=== PATIENT | male | born 1960 | race Caucasian/White ===

== ENCOUNTER 2019-06-29 08:25 | Outpatient (CLI) | payer BC, SELFPAY ==
--- NOTE | 2019-06-29 08:29 | ECG_ITS ---
Measurements Intervals [place] Rate: 61 P: -11 VT: 144 QRS: -30 QRSD: 94 T: 9 QT: 397 QTc: 402 Interpretive Statements SINUS RHYTHM VOLTAGE CRITERIA FOR LVH BORDERLINE R WAVE PROGRESSION, ANTERIOR LEADS BORDERLINE T WAVE ABNORMALITY- INFERIOR LEADS BASELINE ARTIFACT- I, II, AVR BORDERLINE ECG Electronically Signed On 06-29-2019 10:04:18 TIRE FABRICATOR by Bruce Dominguez D.O.
== END 2019-06-29 08:26 | disposition home or self-care (01) ==
LOC: ANHSURGERY 08:29
PROVIDERS: PCP Family Medicine; Visit Provider Surgery
DX: K42.0 Umbilical hernia with obstruction, without gangrene (principal); I10 Essential (primary) hypertension; R94.31 Abnormal electrocardiogram [ECG] [EKG]
CPT/HCPCS: 36415; 86850; 86900; 86901; 93005

== ENCOUNTER 2019-07-04 01:07 | Day surgery (SDC) | payer BC, SELFPAY ==
[2019-06-16 14:45] VITALS: BMI 38.9
--- NOTE | 2019-07-03 16:51 | P.PNAN_ITS ---
Anes - Eval Pre Procedure Procedure: Operation Date: 07/04/19 09:00 Proposed Procedures p Laparoscopic Incarcerated Umbilical Hernia Repair With Mesh, Davinci Assisted - Kaden Moulton DO Date/Time: 07/03/19 16:51 Surgeon: Kory Moulton DO Pre Op Diagnosis: Incarcerated Umbilical Hernia Patient Data Age: 59 Gender: M Height: 6 ft 3 in Weight: 141.52 kg Allergies Allergy/AdvReac Type Severity Reaction Status Date / Time erythromycin base Allergy Unknown Nausea Verified 06/16/19 14:21 TOBRAMYCIN (Generic Allergy) Allergy Unknown Swelling Uncoded 06/16/19 14:21 TOBREX OPTH Allergy Unknown Swelling Uncoded 06/16/19 14:21 of the Eye Home Medications Medication Instructions Recorded Confirmed Type lisinopril 10 mg tablet 10 mg PO DAILY #90 tablet 06/27/19 Rx tadalafil 5 mg tablet 5 mg PO DAILY #90 tablet 06/27/19 Rx ECG: Patient: Paul Mendoza FMR#: [id number] : [id number]:[id number] Age/Sex: 59 / MADM Date: 06/29/19 Loc: [facility]HS[facility] Attending Dr: Kaden Moulton DO Ordering Physician: Jose Alejandro Chase II, MD Date of Service: 06/29/19 Procedure(s): CA 12 lead EKG Accession Number(s): [id number] cc: ~ Measurements Intervals [place] Rate: 61 P: -11 ME: 144 QRS: -30 QRSD: 94 T: 9 QT: 397 QTc: 402 Interpretive Statements SINUS RHYTHM VOLTAGE CRITERIA FOR LVH BORDERLINE R WAVE PROGRESSION, ANTERIOR LEADS BORDERLINE T WAVE ABNORMALITY- INFERIOR LEADS BASELINE ARTIFACT- I, II, AVR BORDERLINE ECG Electronically Signed On 06-29-2019 10:04:18 PORTFOLIO ASSISTANT by Bruce Dominguez D.O. 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
[2019-07-04] VITALS (8 sets, daily range): BP systolic 139–166; BP diastolic 69–90; PULSE 56–84; RESP 16–26; TEMP 36.1–36.4; O2SAT 92–99
[2019-07-04] MEDS: IBUPROFEN IV 800 MG/200 ML 800 MG/200 ML BAG 400 MG IVPB (07:50)
[2019-07-04] MEDS: LACTATED RINGERS 1,000 ML 30 ML IV CONT ×2 (07:50→11:36)
--- NOTE | 2019-07-04 08:33 | P.PNAN_ITS ---
Anes - Eval Final PreProcedure Day of Procedure 07/04/19 08:33 Patient weight: obese Heart: regular rate and rhythm Lungs: clear to auscultation Airway: Mallampati scale class II Neurological: alert and oriented Last oral intake: >/= 8 hours ASA classification: III Emergent: no Anesthetic plan: proceed Anesthesia type and monitoring: general ETT and standard monitoring Informed Consent: The patient's anesthetic plan and its attendant risks and be nefits were discussed with the patient/family/POA. Questions were solicited and answers provided to the satisfaction of the patient/family/POA.
--- NOTE | 2019-07-04 09:00 | PM.IMHP ---
H&P: HPI History of Present Illness Chief complaint: Incarcerated Umbilical Hernia Narrative: Paul Mendoza is a 59 year old male who presents for elective umbilical hernia repair. No changes since last seen in office. Review of Systems Review of Systems: All systems reviewed & are unremarkable except as noted in HPI and below Eyes: Eyes: Denies change in vision ENT: Denies hearing loss, Denies neck pain and Denies sore throat Cardiovascular: Cardiovascular: Denies chest pain and Denies dyspnea Respiratory: Respiratory: Denies cough, Denies dyspnea and Denies wheezing Genitourinary: Genitourinary: Denies hematuria and Denies dysuria Musculoskeletal: Musculoskeletal: Denies arthralgias, Denies joint swelling and Denies neck pain Allergic/Immunologic: Allergic/Immunologic: Denies wheezing PMFSH Past Medical History Medical History Hypertension Wrist laceration Surgical History Surgical History Hx of cholecystectomy Family History Family History Mother Hypertension Father Family history of dementia Sibling Breast cancer Social History Social History Smoking packs per day: 1.5 Smoking cigarettes per day: 30.0 Years smoked: 13 Smoking pack-years: 19.50 Smoking status: Current every day smoker Tobacco type: cigarettes Alcohol intake: current 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 Home Medications and Allergies Home Medications Medication Instructions Recorded Confirmed Type lisinopril 10 mg tablet 10 mg PO DAILY #90 tablet 06/27/19 07/04/19 Rx tadalafil 5 mg tablet 5 mg PO DAILY #90 tablet 06/27/19 07/04/19 Rx Allergies Allergy/AdvReac Type Severity Reaction Status Date / Time erythromycin base AdvReac Mild Nausea Verified 07/04/19 07:44 tobramycin [From Tobrex] AdvReac Mild Swelling Verified 07/04/19 09:02 of the Eye TOBRAMYCIN (Generic Allergy) Allergy Mild SWELLING Uncoded 07/04/19 07:44 OF EYE TOBREX OPTH Allergy Mild Swelling Uncoded 07/04/19 07:44 of the Eye Vital Signs Vital Signs - 24 hr 07/04/19 07:25 Temperature 36.4 C L Pulse Rate 67 Respiratory Rate 20 Blood Pressure 146/80 H Pulse Oximetry 96 Exam Const: General: alert; No acute distress Orientation/consciousness: patient oriented x3 Limitations: no limitations HENMT: Head: normocephalic and atraumatic Ears: hearing grossly normal bilaterally General nose exam: Normal external nose present and Normal nares present Mouth: Yes Normal oral and palatal mucosa present and Yes moist mucous membranes Eyes: General: appearance normal, both eyes and all related structures Conjunctivae: conjunctivae normal Sclera: sclerae normal Pupils: Equal, round and reactive pupils present EOM: EOMs intact bilaterally Neck: Neck: normal visual inspection, full ROM, no lymphadenopathy, supple and no JVD Lymphatic: no lymphadenopathy noted Chest: Chest palpation & inspection: normal inspection of the chest Resp: Effort & Inspection: normal respiratory effort and able to speak in complete sentences Auscultation: clear to auscultation bilaterally Percussion: percussion normal Cardio: Jugular venous distension: no JVD Rate: regular rate Rhythm: regular rhythm Heart sounds: S1 normal heart sound present and S2 normal heart sound present Peripheral pulses: Peripheral pulses 2+ throughout GI: Inspection: normal to inspection and visible herniation (incarcerated umbilical) GI Palp: No abdominal tenderness, Yes Soft to palpation, No Guarding due to palpation present (GI), No Hernia present and No Rebound tenderness present Percussion: Yes normal to percussion Auscultation: normal bowel sounds : General: Yes no CVA tenderness Back/Spine/Pelvis: Kiran
[2019-07-04] MEDS: ceFAZolin 3 GM/D5W 100 ML 100 ML IVPB (09:05)
--- NOTE | 2019-07-04 11:19 | PM.PROC ---
Procedure Note - Detailed Date of procedure: 07/04/19 Pre-op diagnosis: Incarcerated Umbilical Hernia Post-op diagnosis: same Procedure performed: Laparoscopic incarcerated umbilical hernia repair with ProGrip mesh, da Otto assisted Description of procedure: Procedure as well as risks, benefits, and alternatives were discussed with the patient. Written consent was obtained and placed in chart prior to procedure. Patient was brought back to surgical suite. He was placed supine on operating table. Time-out was done to confirm patient and procedure. He was then intubated by the anesthesia department. A bump was placed under his left hip, and the bed was flexed slightly to extend the space between his costal margin and iliac crest. His abdomen was prepped and draped in sterile fashion using chlorhexidine prep. A 5 millimeter incision was made in the left upper quadrant, and a 5 millimeter Optiview trocar was advanced through the abdominal layers under direct visualization. Once inside the abdominal cavity, carbon dioxide insufflation was used to create a pneumoperitoneum. The abdomen was inspected. An 8 millimeter incision was made in the left lower quadrant, and an 8 millimeter robotic trocar was placed under direct visualization. Another 8 millimeter incision was made in the left lateral abdomen, and an 8 millimeter robotic trocar was placed under direct visualization. Exparel was infiltrated along the lateral abdominal beard to perform a transversus abdominis plane block bilaterally. The 5 millimeter port was removed, the incision was extended to 12 millimeters, and a 12 millimeter air seal port was placed under direct visualization. A Len-Frost cone was also used to place an 0-Vicryl simple interrupted suture at this trocar site. The robotic arms were brought up to the patient's bedside and secured to the ports. The camera and instruments were inserted, and I then moved over to the robotic console and took control of the camera and instruments. After careful thorough inspection of the abdominal cavity, I began my dissection at the hernia. The incarcerated omentum was carefully reduced using blunt dissection and hook electrocautery. A preperitoneal plane was then carefully dissected from the left lateral side medially using hook electrocautery. The hernia sac was reduced and a wide enough preperitoneal pocket was created for our repair and mesh placement. I then measured the hernia size. The hernia measured 2 cm x 2 cm. The fascia was closed using an 0-Stratafix running suture in a vertical fashion. A 10 cm x 15 cm pro laborer pullet farm mesh was then placed within the preperitoneal pocket. This was oriented vertically with the mesh centered on the hernia defect. The mesh was then secured at all 4 corners using 2 0 Vicryl simple interrupted suture. The peritoneum was then closed over the mesh using 2 0 V lock running absorbable suture. There was 1 small tear in the peritoneum at the hernia sac, and this was repaired using a 3 0 Vicryl [id number] suture. The repair was inspected, and one final inspection was made around the abdominal cavity. The robotic instruments were then removed, and the robotic arms were disengaged from the trocars. The ports were then removed under direct visualization, the camera was removed, and the pneumoperitoneum was released. The 0 Vicryl transfascial suture was tied down. The skin of the incisions was then approximated using 4-0 Monocryl subcuticular suture. Exofin glue was then applied on top. The patient was then awakened from anesthesia, extubated, and transferred to recovery. Implants: 10 cm x 15 cm Pro Hadoop Infrastructure Architect mesh Anesthesia: GETA and local (Exparel) Surgeon: Kaden Moulton DO Estimated blood loss (mL): 10 Drains: No Complications: No immediate complications Condition: stable Disposition: same day Findings: This is a 59-year-old man who presented with an umbilical hernia that had been present for several years
== END 2019-07-04 13:42 | disposition home or self-care (01) ==
PROVIDERS: PCP Family Medicine; Visit Provider Surgery
PROC: (CPT 49653; principal; 2019-07-04 09:00)
DX: K42.0 Umbilical hernia with obstruction, without gangrene (principal); I10 Essential (primary) hypertension; E66.9 Obesity, unspecified; Z68.39 Body mass index [BMI] 39.0-39.9, adult; F17.210 Nicotine dependence, cigarettes, uncomplicated
CPT/HCPCS: 49653; S2900; A9270; C1781; C9290; J0330; J0690; J1100; J1741; J2250; J2405; J2704; J2710; J3010; J7030; J7120

== ENCOUNTER 2020-08-23 17:55 | Emergency (ER) | payer OTHER, SELFPAY ==
[2020-08-23 18:11] VITALS: BP 141/117; PULSE 97; RESP 18; TEMP 36.4; O2SAT 98
--- NOTE | 2020-08-23 18:35 | ED.GENADULT ---
HPI - General Adult General Chief complaint: Skin/Abscess/Foreign Body Stated complaint: Rash Bilateral Legs Time Seen by Provider: 08/23/20 18:21 Source: patient Mode of arrival: ambulatory Limitations: no limitations History of Present Illness HPI narrative: Patient is a 60-year-old male who presents to emergency department for evaluation of rash that developed over the extremities and now has extended up into his lower abdomen patient notes burning red rash that is spread throughout the legs is noted patient denies similar occurrence allergic contacts or exposures patient has not taken anything for his symptoms and notes just burning patient saw his primary care doctor yesterday but the rash was not present Related Data Allergies Allergy/AdvReac Type Severity Reaction Status Date / Time erythromycin base AdvReac Mild Nausea Verified 08/21/20 14:40 tobramycin [From Tobrex] AdvReac Mild Swelling Verified 08/21/20 14:40 of the Eye Review of Systems Review of Systems: All systems reviewed & are unremarkable except as noted in HPI and below PMFSH Past Medical History Medical History (Updated 08/23/20 @ 20:07 by Richard Lawrence PA-C) Hypertension Tobacco abuse Wrist laceration Surgical History Surgical History History of umbilical hernia laparoscopic incarcerated umbilical hernia repair with Progrip mesh, daVbrady 07/04/2019 Hx of cholecystectomy Family History Family History Mother Hypertension Father Family history of dementia Sibling Breast cancer Social History Social History Smoking packs per day: 1.5 Smoking cigarettes per day: 30.0 Years smoked: 13 Smoking pack-years: 19.50 Tobacco type: cigarettes Alcohol intake: current 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 HEAD: Normocephalic, atraumatic. EYES: PERRLA and EOMI. ENT: Nares clear, no rhinorrhea or epistaxis. Mucous membranes moist. Oropharynx without tonsillar hypertrophy exudate or other lesions. NECK: Supple. No adenopathy or masses. CHEST: Clear to auscultation. No respiratory distress. No wheezes rales or rhonchi HEART: Regular rate and rhythm. No murmur heard. Normal peripheral pulses. EXTREMITIES: Normal range of motion. No edema. SKIN: Warm, dry, petechial rash over the lower extremities and lower torso, no blistering NEURO: No focal deficits. Alert and oriented x3. Cranial nerves II through XII grossly intact PSYCH: Normal mood and affect. Course Course Emergency Course: Patient was evaluated in the emergency department for petechial rash that began today was given fluids and steroids patient resting comfortably afebrile nontoxic-appearing no distress unsure as to the etiology of his petechiae patient will follow up with primary care tomorrow patient is aware of discussion with primary care patient will be sent home with instructions to return if symptoms worsen patient feels comfortable with this plan Consultations Consultation #1: Discussed case with Dr. Portillo who will follow the patient tomorrow by phone discussed case in entirety Date: 08/23/20 Time: 20:11 Vital Signs Vital signs: Vital Signs Temperature 97.5 F L 08/23/20 18:11 Pulse Rate 97 08/23/20 18:11 Respiratory Rate 18 08/23/20 18:11 Blood Pressure 141/117 H 08/23/20 18:11 Pulse Oximetry 98 08/23/20 18:11 Temperature 97.5 F L 08/23/20 18:11 Pulse Rate 97 08/23/20 18:11 Respiratory Rate 18 08/23/20 18:11 Blood Pressure 141/117 H 08/23/20 18:11 Pulse Oximetry 98 08/23/20 18:11 Medical Decision Making MDM Narrative Medical decision making narrative: Patient in the room no distress aware of case findings treatment plan and diagnosis a
[2020-08-23] MEDS: SODIUM CHLORIDE 0.9% IV 1,000 ML 999 ML IV CONT (18:44)
[2020-08-23] MEDS: FAMOTIDINE 20 MG/2 ML VIAL IV PUSH (18:45)
[2020-08-23] MEDS: DEXAMETHASONE SOD PHOS INJ 4 MG/ML VIAL 10 MG IV PUSH (18:47)
[2020-08-23] MEDS: diphenhydrAMINE HCl INJ 50 MG/ML VIAL 25 MG IV PUSH (18:50)
[2020-08-23 18:59] LABS: Basophils Percent Auto 0.4 % (0.2-1.2); Eosinophils Absolute Auto 0.2 K/mm3 (0-0.3); Immature Granulocyte Absolute 0.03 K/mm3 (0.00-0.031); Immature Granulocyte Percent A 0.4 % (0-0.5); Lymphocytes Absolute Auto 1.36 K/mm3 (0.9-3.2); Lymphocytes Percent Auto 18.4 % (18.3-44.2); Mean Corpuscular Hemoglobin 32.1 pg (26-34); Mean Corpuscular Volume 94.5 fl (80-100); Mean Platelet Volume 8.7 fl (7.4-10.4); Monocytes Absolute Auto 0.6 K/mm3 (0.1-0.6); Monocytes Percent Auto 7.8 % (2.6-8.5); Neutrophils Absolute Auto 5.3 K/mm3 (1.3-6.7); Platelet Count Result 149 k/mm3 (150-375); Red Blood Count 5.29 M/mm3 (4.6-6.20); Red Cell Distribution Width 13.2 % (11.5-14.5); White Blood Count 7.4 K/mm3 (4.5-10.0)
[2020-08-23 19:15] LABS: Alanine Aminotransferase 14 U/L (4-50); Albumin Level 4.3 g/dL (3.5-5.1); Alkaline Phosphatase 90 U/L (38-126); Anion Gap 5 mmol/L (8-16); Aspartate Amino Transferase 24 U/L (17-59); Bilirubin,Total 0.6 mg/dL (0.2-1.3); Blood Urea Nitrogen 21 mg/dL (9-20); CRP 0.7 mg/dL (<1.0); Calcium 9.5 mg/dL (8.4-10.2); Carbon Dioxide 26 mmol/L (22-30); Chloride 108 mmol/L (98-107); Estimated CRCL calculation 82 ml/min; Estimated Glomerular Filt Rate > 60; Glucose 107 mg/dL (75-110); INR 0.9; Potassium 4.2 mmol/L (3.4-5.0); Prothrombin Time 12.5 Seconds (11.1-14.7); Sodium 139 mmol/L (137-145)
[2020-08-23 19:23] LABS: Erythrocyte Sedimentation Rate 6 mm/hr (0-20)
[2020-08-23 20:41] VITALS: BP 132/98; PULSE 90; RESP 18; O2SAT 98
== END 2020-08-23 20:42 | disposition home or self-care (01) ==
PROVIDERS: Emergency Medicine Emergency Medical Services; Emergency Provider Emergency Medicine; PCP Family Medicine
DX: R23.3 Spontaneous ecchymoses (principal); I10 Essential (primary) hypertension; F17.210 Nicotine dependence, cigarettes, uncomplicated
CPT/HCPCS: 36415; 80053; 85025; 85610; 85652; 85730; 86140; 96361; 96374; 96375; 99284; J1100; J1200; J7030

== ENCOUNTER 2021-06-10 12:30 | Outpatient (CLI) | payer OTHER, SELFPAY ==
--- NOTE | 2021-06-10 13:00 | ECHO_ITS ---
Patient Info Name: Paul Mendoza Age: 61 years : 1960 Gender: Male Ht: 74 in Wt: 310 lbs BSA: 2.76 m2 HR: 86 bpm BP: 141 / 84 mmHg Technical Quality: Fair Exam Date: 06/10/2021 12:51 PM Exam Location: [facility] Patient Status: Outpatient Admit Date: 06/10/2021 Staff Ordering Physician: Girma Lyons PA-C Casino Floor Supervisor: Cookie Leiva RDCS Attending Provider: Girma Lyons PA-C Referring Physician: Raghav ALEJO Exam Type: CA echo doppler color flow Study Info Indications R01.1 - Cardiac murmur, unspecified Complete two-dimensional, color flow and Doppler transthoracic echocardiogram is performed. Summary 1. Complete two-dimensional, color flow and Doppler transthoracic echocardiogram is performed. 2. Left ventricular chamber dimension is normal. 3. Left ventricular systolic function is normal, estimated at 60-65%. 4. The left ventricular diastolic function is grade I diastolic dysfunction. 5. E/e' 7 is not elevated. 6. Global longitudinal strain is abnormal at -15.6%. 7. There is moderate aortic valve sclerosis. 8. There is mild to moderate aortic valve stenosis with a peak velocity of 284 cm/s, mean gradient of 19 mmHg, and aortic valve area of 1.5 cm2. 9. There is trace aortic valve regurgitation. 10. No pulmonary hypertension, estimated pulmonary arterial systolic pressure is 13 mmHg. 11. There is trivial pericardial effusion. Left Ventricle E/e' 7 is not elevated. Global longitudinal strain is abnormal at -15.6%. Left ventricular chamber dimension is normal. Left ventricular systolic function is normal, estimated at 60-65%. The left ventricular diastolic function is grade I diastolic dysfunction. Right Ventricle Right ventricular systolic function is normal and with normal TAPSE 3.5 cm. Right ventricular chamber dimension is normal. Left Atria Left atrial chamber dimension is normal. Right Atria Right atrial chamber dimension is normal. Aortic Valve The aortic valve is trileaflet. There is moderate aortic valve sclerosis. There is mild to moderate aortic valve stenosis with a peak velocity of 284 cm/s, mean gradient of 19 mmHg, and aortic valve area of 1.5 cm2. There is trace aortic valve regurgitation. Pulmonic Valve There is no pulmonic regurgitation. Mitral Valve There is no mitral valve stenosis. There is no mitral valve regurgitation. Tricuspid Valve There is no tricuspid valve regurgitation. No pulmonary hypertension, estimated pulmonary arterial systolic pressure is 13 mmHg. Pericardium/Pleural There is trivial pericardial effusion. Inferior Vena Cava Normal inferior vena cava with >50% collapse upon inspiration consistent with normal right atrial pressure, 5 mmHg. Aorta The aortic root size at the sinus of Valsalva is normal. Left Ventricular Outflow Tract Name Value Normal LVOT 2D LVOT Diameter 2.0 cm LVOT Doppler LVOT Peak Gradient 5 mmHg LVOT Mean Gradient 3 mmHg LVOT VTI 30 cm LVOT VTI/AV VTI Ratio 0.5
== END 2021-06-10 12:31 | disposition home or self-care (01) ==
PROVIDERS: PCP Family Medicine; Visit Provider Physician Assistant Medical
DX: R01.1 Cardiac murmur, unspecified (principal)
CPT/HCPCS: 93306

== ENCOUNTER → 2023-01-12 10:21 | Outpatient (CLI) | payer OTHER, SELFPAY ==
--- NOTE | ~2023-01-12 | XR_ITS ---
XR chest 2V 01/12/2023 10:33 Indication: Acute upper respiratory infection. Cough. Congestion. Procedure: 2 view chest Comparison: No prior studies for comparison. Findings: Heart size is normal. No focal air space disease, pulmonary edema, pleural effusion or susp ected pneumothorax. Impression: 1: No acute cardiopulmonary disease. Reviewed, dictated and finalized at location B. Impression: 1: No acute cardiopulmonary disease.
== END ==
PROVIDERS: PCP Emergency Medicine; Visit Provider Emergency Medicine
DX: J06.9 Acute upper respiratory infection, unspecified (principal)
CPT/HCPCS: 71046

== ENCOUNTER → 2023-04-15 12:39 | Outpatient (CLI) | payer OTHER, SELFPAY ==
--- NOTE | ~2023-04-15 | US_ITS ---
US thyroid INDICATION: Nontoxic thyroid nodule TECHNIQUE: Real-time sonographic images of the thyroid gland were obtained. COMPARISON: No prior studies for comparison. FINDINGS: The right thyroid lobe measures 4.8 x 1.8 x 2.1 cm. The left thyroid lobe measures 5.3 x 2 .8 x 2.6 cm. There are bilateral thyroid masses, largest in the right lobe measuring 1.6 cm and is so lid, hypoechoic, wider than tall, smoothly marginated without internal echogenic foci, TR 4. Largest in the left lobe is solid, hypoechoic, wider than tall measuring 3.3 cm with smooth margins and no in ternal echogenic foci, TR 4. IMPRESSION: 1. Dominant bilateral thyroid masses which meet sonographic criteria for biopsy. Ultrasound-guided f ine-needle aspiration bilaterally recommended. Reviewed, dictated and finalized at location B. NSE TRAVEL ADMINISTRATOR IMPRESSION: 1. Dominant bilateral thyroid masses which meet sonographic criteria for biops y. Ultrasound-guided fine-needle aspiration bilaterally recommended.
== END ==
PROVIDERS: PCP Emergency Medicine; Visit Provider Emergency Medicine
DX: E04.1 Nontoxic single thyroid nodule (principal)
CPT/HCPCS: 76536

== ENCOUNTER 2023-05-14 12:30 | Outpatient (CLI) | payer OTHER, SELFPAY ==
--- NOTE | ~2023-05-14 | US_ITS ---
EXAMINATION: US FNA w image guidance, US FNA additional DATE: 05/14/2023 13:57 (accession [id number]), 05/15/2023 07:45 (accession [id number]) INDICATION: Bilateral thyroid nodules TECHNIQUE: A time-out was performed to verify the patient's name, date of , and procedure to be performed . The procedure and its benefits and risks were discussed with the patient. Risks specifically discus sed included bleeding and infection. The patient understood the risks and agreed to proceed. The neck was prepped and draped in the usual sterile manner. Attention was first turned to the left thyroid n odule. 3 mL 1% lidocaine was used for local anesthesia. A total of 10 passes were made with a 25G ne edle into the lesion. Appropriate needle location was documented with continuous sonographic guidanc e. Attention was then turned to the right thyroid nodule. An additional 3 mL 1% lidocaine was used fo r local anesthesia. A total of 6 passes were made with a 25G needle into the lesion. Appropriate need le location was documented with continuous sonographic guidance. Sterile bandages were applied. Ther e were no immediate complications. FINDINGS: Grayscale ultrasound images demonstrate biopsy needles advanced into a 4.1 cm solid left thyroid nodu le. Subsequent images demonstrate biopsy needle advanced into a 1.5 cm solid right thyroid nodule. IMPRESSION: 1. Successful ultrasound-guided fine needle aspiration of a 4.1 cm solid left thyroid nodule. 2. Successful ultrasound-guided fine-needle aspiration of a 1.5 cm solid right thyroid nodule. Reviewed, dictated and finalized at location A. E LAB ANALYST IMPRESSION: 1. Successful ultrasound-guided fine needle aspiration of a 4.1 cm solid left thyroid nodule. 2. Successful ultrasound-guided fine-needle aspiration of a 1.5 cm solid right thyroid nodule.
== END 2023-05-14 12:31 | disposition home or self-care (01) ==
LOC: ANHIMG 12:35
PROVIDERS: PCP Emergency Medicine; Visit Provider Emergency Medicine
DX: D34 Benign neoplasm of thyroid gland (principal); E04.2 Nontoxic multinodular goiter
CPT/HCPCS: 10005; 10006; 88172; 88173; 88305

== ENCOUNTER 2024-06-14 10:13 | Emergency (ER) | payer OTHER, SELFPAY ==
--- NOTE | ~2024-06-14 | XR_ITS ---
Clinical Indication: 01/12/2023 PA and lateral views of the chest: Comparison: Chest pain Findings: The lungs are clear, without evidence of focal consolidation or pleural effusion. Cardiome diastinal silhouette is within normal limits. Bones and soft tissues are unremarkable. Impression: Clear lungs. Reviewed, dictated and finalized at location . OMER SALES SERVICE MANAGER Impression: Clear lungs.
--- NOTE | 2024-06-14 10:16 | ECG_ITS ---
Test Date: 2024-06-14 10:19:38 Measurements Intervals [place] Rate: 103 P: 44 TN: 240 QRS: -31 QRSD: 84 T: 65 QT: 323 QTc: 423 Interpretive Statements SINUS TACHYCARDIA WITH FIRST DEGREE AV BLOCK POSSIBLE LEFT ATRIAL ENLARGEMENT [-0.1mV P WAVE IN V1/V2] MARKED LEFT AXIS DEVIATION [QRS AXIS < -30] POSSIBLE LEFT VENTRICULAR HYPERTROPHY [VOLTAGE CRITERIA PLUS LAE OR QRS WIDENING] No previous ECG available for comparison Electronically Signed On 06-14-2024 10:52:44 BUDGET OFFICER by Gabino Streeter M.D.
[2024-06-14 10:25] VITALS: BP 151/76; PULSE 94; RESP 15; TEMP 36.6; O2SAT 97
[2024-06-14 10:45] LABS: Basophils Percent Auto 0.5 % (0.2-1.2); Eosinophils Absolute Auto 0.2 K/mm3 (0-0.3); Eosinophils Percent Auto 1.8 % (0-4.4); Hematocrit 52.1 % (42.0-52.0); Hemoglobin 17.7 g/dL (14.0-18.0); Immature Granulocyte Absolute 0.04 K/mm3 (0.00-0.031); Immature Granulocyte Percent A 0.5 % (0-0.5); Immature Platelet Fraction Pct 1.5 % (0.9-11.2); Lymphocytes Absolute Auto 1.43 K/mm3 (0.9-3.2); Lymphocytes Percent Auto 17.2 % (18.3-44.2); Mean Corpuscular Hemoglobin 32.6 pg (26-34); Mean Corpuscular Volume 95.9 fl (80-100); Mean Platelet Volume 8.3 fl (7.4-10.4); Monocytes Absolute Auto 0.7 K/mm3 (0.1-0.6); Monocytes Percent Auto 8.3 % (2.6-8.5); Neutrophils Percent Auto 71.7 % (45.5-73.1); Platelet Count Result 155 k/mm3 (150-375); Red Blood Count 5.43 M/mm3 (4.6-6.20); Red Cell Distribution Width 12.6 % (11.5-14.5); White Blood Count 8.3 K/mm3 (4.5-10.0)
[2024-06-14 10:59] LABS: Potassium 4.6 mmol/L (3.4-5.0); Prothrombin Time 13.7 Seconds (11.1-14.7)
[2024-06-14 11:00] LABS: Partial Thromboplastin Time 27.7 Seconds (22.3-36.8)
[2024-06-14 11:10] LABS: Troponin I < 0.012 ng/mL (0.000-0.034)
[2024-06-14 11:19] LABS: Alanine Aminotransferase 16 U/L (6-50); Albumin Level 4.2 g/dL (3.5-5.1); Alkaline Phosphatase 108 U/L (38-126); Anion Gap 6 mmol/L (4-12); Aspartate Amino Transferase 23 U/L (17-59); Bilirubin,Total 1.5 mg/dL (0.2-1.3); Blood Urea Nitrogen 19 mg/dL (9-20); Calcium 9.6 mg/dL (8.4-10.2); Carbon Dioxide 28 mmol/L (22-30); Chloride 103 mmol/L (98-107); Estimated CRCL calculation 79 ml/min; Estimated Glomerular Filt Rate 59; Glucose 118 mg/dL (65-110); Lipase 88 U/L (23-300); Sodium 137 mmol/L (137-145)
--- NOTE | 2024-06-14 11:58 | ED_ITS ---
HPI - General Adult General Chief complaint: Recheck/Abnormal Lab/Rx Stated complaint: sent by PCP for abnormal EKG Time Seen by Provider: 06/14/24 11:07 History of Present Illness HPI narrative: 64-year-old male presents emergency department for evaluation for chest pain. Patient states last night he was lying in bed developed some chest pressure at the level of his clavicles bilaterally. Patient denies any radiation of the pain to his neck back or arms. Patient denies any prior history of VT. Patient is a smoker. Patient does report having increased cough and congestion over the last few weeks. Patient states when he woke up in the morning his symptoms had resolved. Patient did call to have follow-up with his primary care physician and patient was referred to the emergency department due to some EKG changes. Upon arrival emergency department EKG shows no evidence acute STEMI and patient is currently pain-free. Patient denies any current pain or complaints. Patient is a smoker Related Data Allergies Allergy/AdvReac Type Severity Reaction Status Date / Time erythromycin base AdvReac Mild Nausea Verified 06/14/24 10:14 tobramycin (From Tobrex) AdvReac Mild Swelling Verified 06/14/24 10:14 of the Eye Review of Systems 2 Review of Systems: All systems reviewed & are unremarkable except as noted in HPI and below PMFSH Past Medical History Medical History Allergies Tobacco abuse Wrist laceration Hypertension Surgical History Surgical History History of umbilical hernia laparoscopic incarcerated umbilical hernia repair with Progrip mesh, [place] 07/04/2019 Hx of cholecystectomy Family History Family History Mother Hypertension Father Family history of dementia Sibling Breast cancer Social History Social History (Updated 06/14/24 @ 09:28 by Maribel Moore MA) Smoking packs per day: 1 Smoking cigarettes per day: 20.0 Years smoked: 20 Smoking pack-years: 20.00 Smoking status: Current every day smoker Tobacco type: cigarettes Alcohol intake: current Alcohol use details: rarely Substance use: never Substance use type: does not use Do You Feel Safe in your Home?: Yes Lack of Transportation: No Lack of Food: Never True Current Housing: I Have Housing Concerned About Future Housing: No Difficulty Paying Gas/Electric Bills: No Difficulty Paying for Meds: No Currently Unemployed: No Education: High School Diploma/GED Difficulty w/ Childcare or Family Care: No Occupation/Education: occupation 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 HEAD: normocephalic, atraumatic. EYES: PERRLA/EOMI, conjunctivae clear. NOSE: Normal no drainage EARS:TMS clear with good light reflex. THROAT: Pharynx clear, no exudate. NECK: Supple. No adenopathy, no masses. RESPIRATORY: Airway patent, respirations nonlabored. Clear to auscultation bilaterally, no rales, rhonchi, wheezing. CARDIOVASCULAR: Regular rate and rhythm without murmurs rubs or gallops. ABDOMINAL: Soft, nontender, nondistended, normal bowel sounds MUSCULOSKELETAL: Moves all extremities. Strength/ROM intact, No edema, No calf tenderness. NEURO: Alert. Cranial nerves II through XII intact. Grossly intact SKIN: Warm, dry. Normal Color Course Vital Signs Vital signs: Vital Signs Temperature 97.9 F 06/14/24 10:25 Pulse Rate 94 06/14/24 10:25 Respiratory Rate 15 06/14/24 10:25 Blood Pressure 151/76 H 06/14/24 10:25 Pulse Oximetry 97 06/14/24 10:25 Oxygen Delivery Room Air 06/14/24 10:25 Temperature 97.9 F 06/14/24 10:25 Pulse Rate 79 06/14/24 14:14 Respiratory Rate 16 06/14/24 14:14 Blood Pressure 116/61 06/14/24 14:14 Pulse Oximetry 98 06/14/24 14:14 Oxygen Delivery Room Air 06/14/24 10:25 Medical Decision Making [facility] Narrative Medical decision making narrative: 64-year-old male presents emergency department for evaluation for resolved chest wall pressure. Patient is currently afebrile with no leukocytosis and hemoglobin of 17.7. Patient's INR is 1.0 with no acute abnormalities on his CMP T bili is 1.5. Initial troponin was negative. Lipase was negative. Chest x- ray shows clear lungs. D-dimer was ordered to evaluate for possibility pulmonary embolism. Patient was updated results of his workup to this point plan for additional labs. Patient continues to deny any chest pressure or chest tightness. Differential Diagnosis Differential Diagnosis: ACS, pulmonary embolism, pneumonia, pneumothorax Vital Signs Vital Signs: Vital Signs Temperature 97.9 F 06/14/24 10:25 Pulse Rate 94 06/14/24 10:25 Respiratory Rate 15 06/14/24 10:25 Blood Pressure 151/76 H 06/14/24 10:25 Pulse Oximetry 97 06/14/24 10:25 Oxygen Delivery Room Air 06/14/24 10:25 Temperature 97.9 F 06/14/24 10:25 Pulse Rate 79 06/14/24 14:14 Respiratory Rate 16 06/14/24 14:14 Blood Pressure 116/61 06/14/24 14:14 Pulse Oximetry 98 06/14/24 14:14 Oxygen Delivery Room Air 06/14/24 10:25 Lab Data Lab results reviewed: Yes I reviewed the patient's lab results. 06/14/24 10:37 06/14/24 10:37 Labs: Lab Results 06/14/24 06/14/24 06/14/24 Range/Units 10:37 12:18 13:15 WBC 8.3 (4.5-10.0) K/mm3 RBC 5.43 (4.6-6.20) M/mm3 Hgb 17.7 (14.0-18.0) g/dL Hct 52.1 H (42.0-52.0) % MCV 95.9 (80-100) fl MCH 32.6 (26-34) pg MCHC 34.0 (32-36) g/dl RDW 12.6 (11.5-14.5) % Plt Count 155 (150-375) k/mm3 MPV 8.3 (7.4-10.4) fl Immature Gran % (Auto) 0.5 (0-0.5) % Neut % (Auto) 71.7 (45.5-73.1) % Lymph % (Auto) 17.2 L (18.3-44.2) % [place] % (Auto) 8.3 (2.6-8.5) % Eos % (Auto) 1.8 (0-4.4) % Baso % (Auto) 0.5 (0.2-1.2) % Lymph # (Auto) 1.43 (0.9-3.2) K/mm3 [place] # (Auto) 0.7 H (0.1-0.6) K/mm3 Eos # (Auto) 0.2 (0-0.3) K/mm3 Baso # (Auto) 0.0 (0.0-0.1) K/mm3 Abs Immat Gran (auto) 0.04 H (0.00-0.031) K/mm3 Absolute Neuts (auto) 6.0 (1.3-6.7) K/mm3 Absolute Nucleated RBC 0.000 (0.0-0.012) K/mm3 Nucleated RBC % 0.0 (0.0-0.2) % % Immature Plt Fraction 1.5 (0.9-11.2) % PT 13.7 (11.1-14.7) Seconds INR 1.0 APTT 27.7 (22.3-36.8) Seconds D-Dimer 0.45 (<0.48) ug/mL Sodium 137 (137-145) mmol/L Potassium 4.6 (3.4-5.0) mmol/L Chloride 103 (98-107) mmol/L Carbon Dioxide 28 (22-30) mmol/L Anion Gap 6 (4-12) mmol/L BUN 19 (9-20) mg/dL Creatinine 1.23 (0.7-1.3) mg/dL Estim Creat Clear Calc 79 ml/min Estimated GFR 59 (59 - ) Glucose 118 H (65-110) mg/dL Calcium 9.6 (8.4-10.2) mg/dL Total Bilirubin 1.5 H (0.2-1.3) mg/dL AST 23 (17-59) U/L ALT 16 (6-50) U/L Alkaline Phosphatase 108 (38-126) U/L Troponin I < 0.012 < 0.012 (0.000-0.034) ng/mL Total Protein 8.0 (6.3-8.2) g/dL Albumin 4.2 (3.5-5.1) g/dL Lipase 88 (23-300) U/L Influenza A (RT-PCR) Negative (Negative) Influenza B (RT-PCR) Negative (Negative) RSV (RT-PCR) Negative (Negative) SARS-CoV-2 RNA (RT-PCR) Negative (Negative) Imaging Data Radiologist's impression: Impressions Chest X-Ray 06/14/24 10:53 Impression: Clear lungs. Discharge Plan Discharge Clinical Impression: Chest pain Patient Disposition: Home, Self-Care Condition: Stable Instructions: Antibiotic Form, Chest Pain (ED) Additional Instructions: Have close follow-up with your primary care physician for additional outpatient cardiac testing. If you have any worsening symptoms then please call or return to the emergency department. Patient Language: Cypriot Prescriptions: No Action tamsulosin 0.4 mg capsule See Rx Instructions .ROUTE .COMPLEX Qty: 90 1RF Dose Instruction: TAKE 1 CAPSULE BY MOUTH EVERY DAY Rx Instructions: TAKE 1 CAPSULE BY MOUTH EVERY DAY lisinopril 10 mg tablet See Rx Instructions .ROUTE .COMPLEX Qty: 90 2RF Dose Instruction: TAKE ONE TABLET BY MOUTH ONCE DAILY Rx Instructions: TAKE ONE TABLET BY MOUTH ONCE DAILY tadalafil [Cialis] 5 mg tablet 5 mg PO DAILY PRN (Reason: PROSTATE) Qty: 90 1RF Follow-up/Referrals: Dunia Johnson MD [Primary Care Provider] - Quality HEART score for chest pain patients History: slightly suspicious ECG: normal Age: > or = to 65 years Risk factors: 1 or 2 risk factors Troponin: < or = to 1x normal limit Heart score: 3
[2024-06-14 12:41] VITALS: BP 121/71; PULSE 82; RESP 20; O2SAT 95
[2024-06-14 12:42] VITALS: RESP 20; O2SAT 96
[2024-06-14 12:44] LABS: D Dimer 0.45 ug/mL (<0.48)
[2024-06-14 13:10] LABS: Influenza A QL RT-PCR Negative (Negative); Influenza B QL RT-PCR Negative (Negative); RSV RNA, RT-PCR Negative (Negative); SARS-CoV-2 RNA PCR Negative (Negative)
[2024-06-14 13:51] LABS: Troponin I < 0.012 ng/mL (0.000-0.034)
[2024-06-14 14:14] VITALS: BP 116/61; PULSE 79; RESP 16; O2SAT 98
== END 2024-06-14 14:15 | disposition home or self-care (01) ==
PROVIDERS: Emergency Provider Emergency Medicine; PCP Family Medicine
DX: R07.9 Chest pain, unspecified (principal); F17.210 Nicotine dependence, cigarettes, uncomplicated; Z20.822 Contact with and (suspected) exposure to COVID-19
CPT/HCPCS: 36415; 71046; 80053; 83690; 84484; 85025; 85055; 85380; 85610; 85730; 87637; 93005; 99284

== ENCOUNTER 2024-06-24 09:41 | Outpatient (CLI) | payer OTHER, SELFPAY ==
--- NOTE | ~2024-06-24 | CT_ITS ---
EXAMINATION:CT lung screening DATE: 06/24/2024 10:05 INDICATION: Personal history of nicotine dependence. Current smoker with 30 pack year history. TECHNIQUE: Computed tomography (CT) of the chest was performed without intravenous contrast. Automate d exposure control and iterative reconstruction technique were employed. The dose-length product (DLP ) was 446.44 mGy-cm. COMPARISON: CT abdomen and pelvis 11/30/2012 FINDINGS: There is mild emphysema. There is mild elevation of left hemidiaphragm. There is mild atele ctasis bilaterally. There is a 12 mm nodule in superior segment left lower lobe. No pleural effusion. The heart size is normal. There are coronary artery calcifications. There are calcifications of the aortic valve. No pericardial effusion. There are changes of cholecystectomy. There is a 2.5 cm cyst i n left kidney. There is severe thoracic spondylosis. There is chronic height loss of multiple vertebr al bodies. IMPRESSION: 1. Lung RADS category 4A: Suspicious. PET/CT or 3-month noncontrast low-dose chest CT is recommended. Reviewed, dictated and finalized at location A. RGY AND IMMUNOLOGY SPECIALIST IMPRESSION: 1. Lung RADS category 4A: Suspicious. PET/CT or 3-month noncontrast low-dose ch est CT is recommended.
== END 2024-06-24 09:42 | disposition home or self-care (01) ==
PROVIDERS: Visit Provider Student in an Organized Health Care Education/Training Program
DX: Z12.2 Encounter for screening for malignant neoplasm of respiratory organs (principal); Z87.891 Personal history of nicotine dependence
CPT/HCPCS: 71271

== ENCOUNTER 2024-06-29 08:36 | Outpatient (CLI) | payer OTHER, SELFPAY ==
--- NOTE | 2024-06-29 09:00 | EST_ITS ---
Patient Info Name: Paul Mendoza Age: 64 years : 1960 Gender: Male Ht: 74 in Wt: 308 lbs BSA: 2.75 m2 HR: 79 bpm BP: 137 / 70 mmHg Exam Date: 06/29/2024 9:11 AM Exam Location: Echo Lab Patient Status: Outpatient Admit Date: 06/29/2024 Staff Ordering Physician: Dunia Johnson MD Attending Provider: Dunia Johnson MD Exercise Technologist: Zulay Duque [facility] Exercise Physician: Bruce Dominguez DO Exam Type: CA stress test treadmill Study Info A treadmill exercise stress test was performed. Summary 1. 1. Negative Chris exercise stress test for ischemic ST changes by ECG criteria. 2. 2. Reduced functional capacity, achieving 7 METs of workload. 3. 3. Appropriate HR response to exercise. 4. 4. Appropriate HR recovery at 1 minute post exercise. 5. 5. No imaging with stress testing. 6. 6. Patient informed of the above results. Protocol: Chris Stress ECG Details Stage: REST Duration (min): 1 min : 18 sec Speed (mph): 0.0 Grade (%): 0 HR (bpm): 82 SBP (mmHg): 137 DBP (mmHg): 70 METS: --- Stage: REST Duration (min): 3 min : 11 sec Speed (mph): 0.0 Grade (%): 0 HR (bpm): 98 SBP (mmHg): 137 DBP (mmHg): 70 METS: --- Stage: REST Duration (min): 11 min : 38 sec Speed (mph): 0.0 Grade (%): 0 HR (bpm): 87 SBP (mmHg): 137 DBP (mmHg): 70 METS: --- Stage: STAGE 1 Duration (min): 1 min : 0 sec Speed (mph): 1.7 Grade (%): 10 HR (bpm): 102 SBP (mmHg): 137 DBP (mmHg): 70 METS: --- Stage: STAGE 1 Duration (min): 2 min : 0 sec Speed (mph): 1.7 Grade (%): 10 HR (bpm): 110 SBP (mmHg): 137 DBP (mmHg): 70 METS: --- Stage: STAGE 1 Duration (min): 3 min : 0 sec Speed (mph): 1.7 Grade (%): 10 HR (bpm): 115 SBP (mmHg): 182 DBP (mmHg): 90 METS: --- Stage: STAGE 2 Duration (min): 1 min : 0 sec Speed (mph): 2.5 Grade (%): 12 HR (bpm): 125 SBP (mmHg): 182 DBP (mmHg): 90 METS: --- Stage: STAGE 2 Duration (min): 2 min : 0 sec Speed (mph): 2.5 Grade (%): 12 HR (bpm): 133 SBP (mmHg): 182 DBP (mmHg): 90 METS: --- Stage: STAGE 2 Duration (min): 2 min : 0 sec Speed (mph): 2.5 Grade (%): 12 HR (bpm): 134 SBP (mmHg): 182 DBP (mmHg): 90 METS: --- Stage: RECOVERY Duration (min): 0 min : 59 sec Speed (mph): 0.0 Grade (%): 0 HR (bpm): 123 SBP (mmHg): 182 DBP (mmHg): 90 METS: --- Stage: RECOVERY Duration (min): 1 min : 59 sec Speed (mph): 0.0 Grade (%): 0 HR (bpm): 101 SBP (mmHg): 182 DBP (mmHg): 90 METS: --- Stage: RECOVERY Duration (min): 2 min : 59 sec Speed (mph): 0.0 Grade (%): 0 HR (bpm): 97 SBP (mmHg): 184 DBP (mmHg): 59 METS: --- Stage: RECOVERY Duration (min): 3 min : 5 sec Speed (mph): 0.0 Grade (%): 0 HR (bpm): 98 SBP (mmHg): 184 DBP (mmHg): 59 METS: --- Rest HR: 87 bpm Peak HR: 134 bpm Rest Sys BP: 137 mmHg Peak Sys BP: 184 mmHg Max Pred HR: 154 bpm % Max Pred HR: 87 % Target HR: 131 bpm Max RPP: 24,656 bpm*mmHg Mahajan Score: 0 Termination Reason: Reached target heart rate or workload Cardiac Symptoms: Leg pain, sob Max ST Seg Deviation: 1.10 mm Total Time: 5 min : 0 sec Rest Gracia BP: 70 mmHg Peak Gracia BP: 59 mmHg Angina Score: None Total METS: 7.1 Resting ECG Sinus rhythm, cannot r/o septal infarct, age indeterminate. Stress ECG No ST changes. Arrhythmias None. Report Signatures
--- NOTE | 2024-06-29 09:39 | ECHO_ITS ---
Patient Info Name: Paul Mendoza Age: 64 years : 1960 Gender: Male Ht: 74 in Wt: 308 lbs BSA: 2.75 m2 HR: 90 bpm BP: 131 / 87 mmHg Technical Quality: Fair Exam Date: 06/29/2024 9:47 AM Exam Location: Echo Lab Patient Status: Outpatient Admit Date: 06/29/2024 Staff Ordering Physician: Dunia Johnson MD Propulsion Machinery Service Engineer: Sindi Daniels RDCS Attending Provider: Dunia Johnson MD Referring Physician: Alex HUBBARD; Exam Type: CA echo doppler color flow Study Info Indications - CHEST PAIN Complete two-dimensional, color flow and Doppler transthoracic echocardiogram is performed. Summary 1. Complete two-dimensional, color flow and Doppler transthoracic echocardiogram is performed. 2. Left ventricular chamber dimension is normal. 3. Left ventricular systolic function is normal, estimated at 65-70%. 4. There is moderate asymmetric septal increased left ventricular wall thickness. 5. The left ventricular diastolic function is grade I diastolic dysfunction. 6. E/e' 5 is not elevated. 7. There is moderate aortic valve sclerosis. 8. There is moderate aortic valve stenosis with a peak velocity of 280 cm/s, mean gradient of 16 mmHg, and aortic valve area of 1.4 cm2. 9. There is trace aortic valve regurgitation. Left Ventricle E/e' 5 is not elevated. Left ventricular chamber dimension is normal. Left ventricular systolic function is normal, estimated at 65-70%. There is moderate asymmetric septal increased left ventricular wall thickness. The left ventricular diastolic function is grade I diastolic dysfunction. Right Ventricle Right ventricular systolic function is normal and with normal TAPSE 2.3 cm. Right ventricular chamber dimension is normal. Left Atria Left atrial chamber dimension is normal. Right Atria Right atrial chamber dimension is normal. Aortic Valve The aortic valve is trileaflet. There is moderate aortic valve sclerosis. There is moderate aortic valve stenosis with a peak velocity of 280 cm/s, mean gradient of 16 mmHg, and aortic valve area of 1.4 cm2. There is trace aortic valve regurgitation. Pulmonic Valve There is no pulmonic regurgitation. Mitral Valve There is no mitral valve stenosis. There is no mitral valve regurgitation. Tricuspid Valve There is no tricuspid valve regurgitation. Pericardium/Pleural There is no pericardial effusion. Inferior Vena Cava Normal inferior vena cava with >50% collapse upon inspiration consistent with normal right atrial pressure, 5 mmHg. Aorta The aortic root size at the sinus of Valsalva is normal. Left Ventricular Outflow Tract Name Value Normal LVOT 2D LVOT Diameter 2.2 cm LVOT Doppler LVOT Peak Gradient 3 mmHg LVOT Mean Gradient 2 mmHg LVOT VTI 23 cm LVOT VTI/AV VTI Ratio 0.4 LVOT Stroke Volume 84 ml LVOT CO 4.6 l/min LVOT CI 1.7 l/min/m2 Pulmonic Valve Name Value Normal RVOT Doppler RVOT Peak Gradient 4 mmHg PV Doppler PV Peak Gradient 3 mmHg Mitral Valve Name Value Normal MV Doppler MV Decel [place] 298 cm/s2 MV PHT 47 ms MV Area (PHT) 4.7 cm2 4.0-5.0 MV Diastolic Function MV E Peak Velocity 49 cm/s MV A Peak Velocity 95 cm/s MV E/A 0.5 MV Decel Time 163 ms MV Annular TDI MV E/e' (Septal) 5.6 <=8.0 MV E/e' (Lateral) 4.6 <=8.0 MV E/e' (Average) 5.1 Tricuspid Valve Name Value Normal Estimated PAP/RSVP RA Pressure 5 mmHg <=5 Aorta Name Value Normal Ascending Aorta Ao Root Diameter (MM) 3.9 cm Ao Root Diam Index (MM) 1.4 cm/m2 Aortic Valve Name Value Normal AV Doppler AV Peak Velocity 280 cm/s AV Peak Gradient 26 mmHg AV Mean Gradient 16 mmHg AV VTI 58 cm AV Area (Cont Eq VTI) 1.4 cm2 >=3.0 AV Area (Cont Eq Lee) 1.2 cm2 AV Regurgitation 2D LVOT Area 3.7 cm2 AV Regurgitation Doppler AR Decel Time 1,991 ms AR Decel [place] 190 cm/s2 AR PHT 577 ms Ventricles Name Value Normal LV Dimensions 2D/MM IVS Diastolic Thickness (2D) 1.5 cm 0.6-1.0 LVID Diastole (2D) 4.6 cm 4.2-5.8 LVIW Diastolic Thickness (2D) 1.2 cm 0.6-1.0 LVID Systole (2D) 3.2 cm 2.5-4.0 LVOT Diameter 2.2 cm LV Mass (2D Cubed) 253.10 g 88.00-224.00 LV Mass Index (2D Cubed) 92 g/m2 49-115 Relative Wall Thickness (2D) 0.54 LV Fractional Shortening/Ejection Fraction 2D/MM LV Fractional Shortening (2D) 30 % 25-43 LV EF (2D Teicholz) 57 % 52-72 LV Diastolic Volume (4C MOD) 116 ml LV EF (4C MOD) 74 % LV Diastolic Volume (2C MOD) 90 ml LV EF (2C MOD) 63 % LV Diastolic Volume (BP MOD) 104 ml 62-150 LV Diastolic Volume Index (BP MOD) 38 ml/m2 34-74 LV Systolic Volume (BP MOD) 32 ml 21-61 LV Systolic Volume Index (BP MOD) 12 ml/m2 11-31 LV EF (BP MOD) 69 % 52-72 LV Diastolic Length (4C) 8.7 cm LV Systolic Length (4C) 6.8 cm LV Stroke Volume (4C MOD) 85 ml Atria Name Value Normal LA Dimensions LA Dimension (MM) 3.7 cm 3.0-4.1 LA Volume (4C A-L) 57 ml LA Volume (BP A-L) 64 ml RA Dimensions RA Area (4C) 17.7 cm2 <=18.0 Report Signatures
== END 2024-06-29 08:37 | disposition home or self-care (01) ==
PROVIDERS: PCP Family Medicine; Visit Provider Family Medicine
DX: I35.0 Nonrheumatic aortic (valve) stenosis (principal); I35.8 Other nonrheumatic aortic valve disorders; I51.89 Other ill-defined heart diseases; F17.210 Nicotine dependence, cigarettes, uncomplicated
CPT/HCPCS: 93017; 93306

== ENCOUNTER 2024-07-28 08:12 | Outpatient (CLI) | payer OTHER, SELFPAY ==
--- OUTSIDE RECORDS SUMMARY | 2024-07-28 08:22 | XMS_ITS | Encounter Summary ---
Author Organization [facility] Address [address] [place] [address] Phone Care Team Providers Care Industrial Real Estate Agent Name Role Phone Myke Johnson MD Primary Care Provider [phone] Encounter Details Date Type Department Care Team (Late st Contact Info) Description 07/19/2024 Telephone [facility] [address] [place] [address] Melisa Ornelas RMA Social History Tobacco Use Types Packs/Day Years Used Date Smoking Tobacco: Every Day Cigarettes Smokeless Tobacco: Never AUDIT-C Answer Date Recorded Q1: How often do you have a drink containing alc ohol? Monthly or less 07/19/2024 Average Number of Drinks Not on file 025 Frequency of Binge Drinking Not on file 06/26 Sex and Gender Information Value Date Recorded Sex Assigned at Not on file Legal Sex Male 4:57 PM CDT Gender Identity Not on file Sexual Orientation Not on file documented as of this encounter Functional Status documented as of this encounter Miscellaneous Notes * Telephone Encounter - Melisa Ornelas RMA - 07/19/2024 12:06 PM REED MAN Scheduled pt PET 08/02 9:30[facility] NPO 6 hours prior Waiting for PFT to be scheduled Spoke to pt. Pt is aware of date, time and location MAN documented in this encounter Plan of Treatment Not on file documented as of this encounter Visit Diagnoses Not on filedocumented in this encounter Care Teams Industrial Real Estate Agent Relationship Specialty Start Date End Date Myke Johnson MD [address] [place] [address] PCP - General Family Medicine 03/20/21 documented as of this encounter
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
--- NOTE | 2024-07-28 14:47 | WPDPFTINT ---
PFT Procedure Performed PFT Procedure Performed Plethysmography (Lung Vol) Diffusing Cap (DLCO) Flow Vol Loop Spirometry w/o Bronchodil PFT Interpretation Lung volumes were measured with the body plethysmography method. The elevated RV could indicate air trapping. The remaining lung volumes are unremarkable. Spirometry showed diminished expiratory flow rates and a borderline low FEV 1 to FVC ratio of 63%, indicative of obstructive airway disease. No post bronchodilator study conducted. Lung diffusion capacity is within the normal range at 86% predicted. Impression: Mild obstructive airway disease. Lung diffusion capacity within the normal range.
== END 2024-07-28 08:13 | disposition home or self-care (01) ==
LOC: ANHPFT 08:13
PROVIDERS: PCP Family Medicine
DX: J44.9 Chronic obstructive pulmonary disease, unspecified (principal); R91.1 Solitary pulmonary nodule
CPT/HCPCS: 94375; 94726; 94729

== ENCOUNTER 2024-08-02 09:20 | Outpatient (CLI) | payer OTHER, SELFPAY ==
--- NOTE | ~2024-08-02 | PE_ITS ---
EXAMINATION: PET skull to mid thigh DATE: 08/02/2024 11:34 INDICATION: Lung nodule. TECHNIQUE: Blood glucose level was 90 mg/dL. 9.341 mCi of 18-fluorodeoxyglucose (18-FDG) was administ ered i.v. Low dose computed tomography (CT) images were acquired from the base of the brain to the pr oximal thighs for attenuation correction and anatomic localization. Automated exposure control was em ployed. Dose-length product (DLP) was 1489 mGy-cm. Positron emission tomography (PET) images were acq uired in the same distribution. COMPARISON: Chest CT 06/24/2024 FINDINGS: Head/neck: There are no pathologically enlarged lymph nodes. There is a 5 mm mass in right parotid gl and with maximum SUV of 5.7. Chest: There is a 13 mm nodule in superior segment left lower lobe with maximum SUV of 3.6. No pleura l effusion. The heart size is normal. There are coronary artery calcifications. There are calcificati ons of the aortic valve. No pericardial effusion. There is a small sliding hiatal hernia. Abdomen/pelvis/proximal thighs: The liver is normal. There are changes of cholecystectomy. The spleen , pancreas, adrenal glands, and right kidney are normal. There is a 2.1 cm cyst in left kidney. The p rostate is moderately enlarged. There are no dilated loops of bowel. The appendix is normal. There ar e no pathologically enlarged lymph nodes. There is no free intraperitoneal fluid. There is no osseous malignancy. IMPRESSION: 1. 13 mm nodule in left lung lower lobe with increased activity, consistent with primary bronchogenic carcinoma. CT-guided biopsy is recommended. 2. 5 mm mass in right parotid gland with increased activity. The differential diagnosis includes reac tive lymph node, benign mixed tumor, Warthin tumor, and less likely primary malignancy or claudia metas tatic disease. Reviewed, dictated and finalized at location B. IMPRESSION: 1. 13 mm nodule in left lung lower lobe with increased activity, consistent wit h primary bronchogenic carcinoma. CT-guided biopsy is recommended. 2. 5 mm mass in right parotid gland with increased activity. The differential d iagnosis includes reactive lymph node, benign mixed tumor, Warthin tumor, and l ess likely primary malignancy or claudia metastatic disease.
[2024-08-02 09:42] LABS: Glucose Point of Care 90 mg/dl (65-105)
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
== END 2024-08-02 09:21 | disposition home or self-care (01) ==
PROVIDERS: PCP Family Medicine
DX: R91.1 Solitary pulmonary nodule (principal); K11.8 Other diseases of salivary glands
CPT/HCPCS: 78815; A9552